=== PATIENT | female | born 1945 | race Hispanic/Latino ===

== ENCOUNTER 2016-06-28 07:23 | Day surgery (SDC) | payer MEDICARE, BC ==
[2016-06-20 10:56] VITALS: BMI 43.0
[2016-06-28] MEDS ORDERED: ePHEDrine 50 mg/ml Inj ONE (08:47)
[2016-06-28] MEDS ORDERED: Propofol 10 mg/ml Inj (20 ML) ONE (08:47)
[2016-06-28] MEDS ORDERED: Sodium Chloride 0.9% 1,000 ML IV SCH (09:30)
[2016-06-28 09:41] VITALS: O2SAT 99
[2016-06-28 09:56] VITALS: BP 141/69; PULSE 53; RESP 17; TEMP 97.5
== END 2016-06-28 10:21 | disposition home or self-care (01) ==
LOC: ENDO 07:23
PROVIDERS: ATTEND Internal Medicine Gastroenterology
DX: Z12.11 Encounter for screening for malignant neoplasm of colon (principal); Z85.038 Personal history of other malignant neoplasm of large intestine; K57.30 Diverticulosis of large intestine without perforation or abscess without bleeding; K64.8 Other hemorrhoids
CPT/HCPCS: 45378; J2001; J2704; J7040